=== PATIENT | female | born 1995 | race African-American/Black ===

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

== ENCOUNTER 2017-02-12 08:43 | Emergency (ER) | payer OTHER ==
[~2017-02-12] VITALS: Ht 167.6 cm; Wt 63.5 kg
[2017-06-03] MEDS ORDERED: FLAGYL500 MG PO (15:44)
== END 2017-02-12 09:20 | disposition home or self-care (01) ==
LOC: ER 08:43
DX: J06.9 Acute upper respiratory infection, unspecified (principal)

== ENCOUNTER 2017-02-18 21:43 | Emergency (ER) | payer OTHER ==
[~2017-02-18] VITALS: Ht 167.6 cm; Wt 63.5 kg
[2017-02-18] MEDS ORDERED: PREDNISONE 20 M20 MG PO (23:21)
[2017-02-18] MEDS ORDERED: TESSALON PERLE100 MG PO (23:21)
[2017-06-03] MEDS ORDERED: FLAGYL500 MG PO (15:44)
== END 2017-02-19 00:30 | disposition home or self-care (01) ==
LOC: ER 21:43
DX: J40 Bronchitis, not specified as acute or chronic (principal); R11.10 Vomiting, unspecified

== ENCOUNTER 2018-01-30 17:40 | Emergency (ER) | payer OTHER ==
[~2018-01-30] VITALS: Ht 167.6 cm; Wt 68.0 kg
[~2018-01-30 17:40] MED LIST changes: +FLAGYL500 MG PO; +TESSALON PERLE100 MG PO
[2018-01-30 18:46] VITALS: BP 125/68
== END 2018-01-30 18:40 | disposition home or self-care (01) ==
LOC: ER 17:40
DX: R23.8 Other skin changes (principal)

== ENCOUNTER 2019-09-21 10:12 | Emergency (ER) | payer OTHER ==
[~2019-09-21] VITALS: Ht 167.6 cm; Wt 81.7 kg
[2019-09-21 13:09] VITALS: BP 128/89
== END 2019-09-21 13:10 | disposition home or self-care (01) ==
LOC: ER 10:12
DX: J32.9 Chronic sinusitis, unspecified (principal); Z20.828 Contact with and (suspected) exposure to other viral communicable diseases

== ENCOUNTER 2020-03-20 02:02 | Emergency (ER) | payer OTHER ==
[~2020-03-20] VITALS: Ht 167.6 cm; Wt 83.9 kg
[2020-03-20] MEDS ORDERED: NOHOMEMEDICATIONS (02:13)
[2020-03-20] MEDS ORDERED: IBUPROFEN 800800 M1 PO (03:05)
[2020-03-20 03:30] VITALS: BP 125/74
== END 2020-03-20 03:25 | disposition home or self-care (01) ==
LOC: ER 02:02
DX: S97.82XA Crushing injury of left foot, initial encounter (principal); W20.8XXA Other cause of strike by thrown, projected or falling object, initial encounter; Y93.89 Activity, other specified; Y92.89 Other specified places as the place of occurrence of the external cause; Y99.8 Other external cause status

== ENCOUNTER 2020-07-24 05:11 | Emergency (ER) | payer OTHER ==
[~2020-07-24] VITALS: Ht 167.6 cm; Wt 83.9 kg
[~2020-07-24 05:11] MED LIST changes: +IBUPROFEN 800800 M1 PO; +NOHOMEMEDICATIONS
[2020-07-24 05:33] LABS: URINE BILIRUBIN NEGATIVE (Negative); URINE BLOOD 3+ (Negative); URINE CLARITY CLOUDY; URINE COLOR YELLOW; URINE GLUCOSE-RANDOM* NEGATIVE (Negative); URINE KETONES NEGATIVE (Negative); URINE LEUKOCYTES-REFLEX TRACE (Negative); URINE NITRITE-REFLEX NEGATIVE (Negative); URINE PROTEIN (DIPSTICK) TRACE (Negative); URINE SPECIFIC GRAVITY 1.025 (1.005-1.035); URINE UROBILINOGEN 0.2 E.U./dl (0.2-1.0)
[2020-07-24 05:47] LABS: AMORPHOUS URATES Moderate /LPF (None Seen); BACTERIA-REFLEX 1-9 Few /HPF (None Seen); CASTS None Seen /LPF (None Seen); SQUAMOUS 0-3 Few /LPF (0-3); URINE RBC >20 Many /HPF (NONE SEEN); URINE WBC-REFLEX 0-5 Rare /HPF (0-5)
[2020-07-24 06:19] LABS: HEMATOCRIT 35.2 % (37.0-47.0); HEMOGLOBIN 11.8 gm/dL (12.0-15.0); MCH 29.7 pg (26.0-34.0); MCHC 33.4 g/dL (28.0-37.0); RBC 3.96 mil/uL (4.20-5.00); RDW 13.4 % (10.5-14.5); WBC 13.3 thou/uL (4.0-11.0)
[2020-07-24 09:20] VITALS: BP 113/71
== END 2020-07-24 09:20 | disposition home or self-care (01) ==
LOC: ER 05:11
PROVIDERS: Emergency Medicine
DX: O03.4 Incomplete spontaneous abortion without complication (principal)